=== PATIENT | male | born 1995 | race Caucasian/White ===

== ENCOUNTER 2017-04-03 10:09 | Emergency (ER) | payer OTHER ==
[~2017-04-03] VITALS: Ht 177.8 cm; Wt 95.5 kg
--- NOTE | 2017-04-03 11:46 | REP ---
Clinical: Trauma. Technique: AP, lateral, bilateral oblique and sunrise views right knee. Findings: The osseous structures and joint spaces are intact and normal. There is no evidence for acute fracture or dislocation. No joint effusion is appreciated. Surrounding soft tissues are unremarkable. No subcutaneous emphysema or radiodense foreign body. Impression: No acute fracture or dislocation. Signed by Giancarlo Pascual MD 04/03/2017 11:38 A
[2017-04-03] MEDS ORDERED: IBUP80TA PO (12:49)
[2017-04-03 13:19] VITALS: BP 151/74
== END 2017-04-03 13:21 | disposition home or self-care (01) ==
LOC: M ED 10:09
DX: M25.561 Pain in right knee (principal)